=== PATIENT | female | born 1990 | race Caucasian/White ===

== ENCOUNTER → 2019-06-30 | Outpatient (CLI) | payer BC ==
[2019-06-30 12:02] LABS: African American GFR (CKD) >90 (>60 ml/min/1.73 sqM); Anion Gap 8 mmol/L; Blood Urea Nitrogen 17 mg/dL (7-17); Carbon Dioxide 25 mmol/L (22-30); Chloride 110 mmol/L (98-107); Glucose 94 mg/dL (74-99); Non-African American GFR(CKD) >90 (>60 ml/min/1.73 sqM); Potassium 4.3 mmol/L (3.5-5.1); Sodium 143 mmol/L (137-145)
[2019-06-30 12:12] LABS: HCT 42.6 % (34.0-46.0); MCHC 32.7 g/dL (31.0-37.0); MCV 91.5 fL (80.0-100.0); Mean Platelet Volume 7.5; Platelet Count 323 k/uL (150-450); RBC 4.66 m/uL (3.80-5.40); RDW 12.9 % (11.5-15.5); WBC 6.2 k/uL (3.8-10.6)
== END | disposition home or self-care (01) ==
LOC: LABPAT 11:35
PROVIDERS: ATTEND Internal Medicine Clinical Cardiac Electrophysiology
DX: Z01.812 Encounter for preprocedural laboratory examination (principal); I47.1 Supraventricular tachycardia; I34.1 Nonrheumatic mitral (valve) prolapse
CPT/HCPCS: 36415; 80051; 82565; 82947; 84520; 85027

== ENCOUNTER 2019-07-10 11:17 | Day surgery (SDC) | payer BC ==
[2019-07-09 08:34] VITALS: BMI 25.8
[~2019-07-10 11:17] MED LIST: DEXAMETHASONE SOD PHOSPHATE 10 MG/ML 1 ML VIAL IV ONE; HYDROmorphone 0.5 MG/0.5 ML SYRINGE IVP PRN; LACTATED RINGERS 1,000 ML IV SCH; MIDAZOLAM 2 MG/2 ML VIAL IV PRN; ONDANSETRON 4 MG/2 ML VIAL IVP ONE
[2019-07-10] MEDS ORDERED: SODIUM CHLORIDE 0.9% 1,000 ML IV ONE ×2 (11:59→15:57)
[2019-07-10] MEDS ORDERED: PROPOFOL 10 MG/ML 20 ML VIAL IV ONE (12:20)
[2019-07-10] MEDS ORDERED: HEPARIN SODIUM,PORCINE 5,000 UNIT/ML 1 ML VIAL ONE (12:20)
[2019-07-10] MEDS ORDERED: fentaNYL (PF) 50 MCG/ML 2 ML AMP ONE (12:20)
[2019-07-10] MEDS ORDERED: MIDAZOLAM 2 MG/2 ML VIAL ONE (12:20)
[2019-07-10] MEDS ORDERED: ISOPROTERENOL 250 MCG/1.25 ML SYR IV ONE (12:20)
[2019-07-10] MEDS ORDERED: LIDOCAINE 1% INJ 10MG/ML (20 ML MDV) ONE (12:21)
[2019-07-10] MEDS ORDERED: LIDOCAINE 1% INJ 10MG/ML (20 ML MDV) SQ ONE (13:08)
[2019-07-10] MEDS ORDERED: HEPARIN SODIUM (1,000 UNIT/ML) 1,000 UNIT in SODIUM CHLORIDE 0.9% 1,000 ML IRRIGATION ONE ×2 (14:14→15:00)
[2019-07-10] MEDS ORDERED: ACETAMINOPHEN TAB 325 MG TAB PO PRN (15:46)
[2019-07-10] MEDS ORDERED: HYDROcodone/APAP 5-325MG 1 EACH TAB PO PRN (15:46)
[2019-07-10] MEDS ORDERED: ACETAMINOPHEN IV (For NPO) 1,000 MG in EMPTY BAG 1 BAG IVPB ONE (15:46)
--- NOTE | 2019-07-10 16:07 | P.HPCAR ---
History of Present Illness This is Dr. Drummond dictating on this patient The patient was interviewed and examined by me IMPRESSION / ASSESSMENT: 20-year-old female with a history of recurrent palpitations, therefore terminate with a Valsalva maneuver Recent episodes are longer, more frequent and do not terminate with the Valsalva maneuver The last for about an hour Presyncope associated with these episodes Mitral prolapse Stable from a standpoint saccadic standpoint to proceed with EP study on the back PLAN: EP study and SVT ablation HPI 20-year-old female who has had years of SVT/palpitations. The Valsalva maneuver usually works and she was treated medically with verapamil. However more recently she is having very frequent episodes that last longer than before. The cholesterol to 1 hour at a time, do not respond to Valsalva maneuver anymore and make her dizzy and lightheaded. She has been treated with verapamil in the past She has mitral prolapse ROS: No fever chills or rigors, no cough, phlegm or expectoration, no nausea, vomiting or diarrhea, no hematuria, dysuria, no musculoskeletal complaints, no strokes or seizures, no skin lesions. EXAMINATION: Afebrile 97.8F, pulse rate in the 80s and 90s normal respirations Blood pressure 142/86 mmHg Normal heart sounds normal S1 normal S2 no murmurs to gallop No JVD No lower extremity edema denies soft abdomen nontender Breath sounds are clear no rhonchi no crackles REVIEW OF LABS, ECG & MEDICAL DATA Beta-hCG negative Physical Exam Vitals: Vital Signs Temp Pulse Resp BP Pulse Ox 07/10/19 11:49 97.8 F 94 16 142/86 100 Intake and Output 07/10/19 07/10/19 07/10/19 06:59 14:59 22:59 Intake Total 1000 213 Balance 1000 213 Intake: IV 1000 213 Other: Weight 76 kg Past Medical History Past Medical History: Asthma Additional Past Medical History / Comment(s): SEE DR XIE HISTORY AND PHYSICAL FOR CARDIAC HISTORY History of Any Multi-Drug Resistant Organisms: None Reported Past Surgical History: No Surgical Hx Reported, Tonsillectomy Past Anesthesia/Blood Transfusion Reactions: Motion Sickness Smoking Status: Never smoker - Past Family History Mother Family Medical History: No Reported History Physical Examination Vital Signs Temp Pulse Resp BP Pulse Ox 07/10/19 11:49 97.8 F 94 16 142/86 100 Intake and Output 07/10/19 07/10/19 07/10/19 06:59 14:59 22:59 Intake Total 1000 213 Balance 1000 213 Intake: IV 1000 213 Other: Weight 76 kg Results Current Medications Generic Name Dose Route Start Last Admin Trade Name Freq PRN Reason Stop Dose Admin Acetaminophen 650 mg 07/10/19 15:46 Tylenol Tab PO Q6HR PRN Mild Pain Hydrocodone Bitart/Acetaminophen 1 each 07/10/19 15:46 [place] 5-325 PO Q4HR PRN Moderate Pain Hydromorphone HCl 0.5 mg 07/10/19 06:17 Dilaudid IVP 07/11/19 06:18 Q5M PRN Pain Control Lactated Ringer's 1,000 mls @ 20 mls/hr 07/10/19 06:17 Lactated Ringers IV .Q24H SCAR Sodium Chloride 1,000 mls @ 20 mls/hr 07/10/19 06:17 Saline 0.9% IV .Q24H SCAR Acetaminophen 1,000 mg/ IV 100 mls @ 400 mls/hr 07/10/19 15:46 Solution IVPB 07/10/19 16:00 ONCE ONE Midazolam HCl 2 mg 07/10/19 06:17 Versed IV 07/11/19 06:18 ONCE PRN Anxiety Sodium Chloride 12 ml 07/10/19 21:00 Saline Flush IV Q12HR SCAR Intake and Output 07/10/19 07/10/19 07/10/19 06:59 14:59 22:59 Intake Total 1000 213 Balance 1000 213 Intake: IV 1000 213 Other: Weight 76 kg Patient Weight 07/11/19 06:59 Weight 76 kg
--- NOTE | 2019-07-10 16:09 | P.PRLE ---
RE: Kathleen Caldera Dear Dr. Manzo Patient underwent a diagnostic EP study for palpitations refractory to medical treatment. She had easily inducible AV yessenia reentrant tachycardia and she underwent successful ablation of the slow pathway. The tachycardia was rendered noninducible At this time I would recommend stopping verapamil completely. Thank you for entrusting me with the care of the patient Warm regards Sincerely Elbert Drummond
[2019-07-10] MEDS: SODIUM CHLORIDE 0.9% 1,000 ML IV SCH (16:14)
--- NOTE | 2019-07-10 21:25 | PCN ---
PROCEDURE NOTE Kathleen Caldera is a 28-year-old female who has had recurrent palpitations that are Valsalva-sensitive. More recently she has become resistant to the Valsalva maneuver and she continues to have episodes that make her very dizzy. These last for up to an hour. She is brought in for a diagnostic EP study and radiofrequency ablation. Patient was brought to the EP lab in a fasting state. Written informed consent was obtained prior to the procedure. The right and left groins were prepped and draped as per protocol. Venous sheaths were placed in the right and left femoral veins, and via these 4 diagnostic catheters were positioned, including high right atrial catheter, His bundle catheter, RV and coronary sinus catheter. The sinus cycle length was 720 milliseconds, MO interval 191 milliseconds, QRS 97 milliseconds and QT 390 milliseconds. AH interval 95 milliseconds, HV interval 59 milliseconds. Sinus node recovery times at 600, 500 and 400 milliseconds were tested. The sinus node recovery times at 600 and 500 milliseconds were 1205 and 862 milliseconds. With straight pacing, AVNRT was induced. Onset of the tachycardia was with a long MO interval and a long AH interval. Separate times were short and less than 20 milliseconds, consistent with AV yessenia reentry. However, with pacing maneuvers in the right ventricle, it would result in repeated termination of the tachycardia. Spontaneous termination would occur with block of the retrograde limb. Parahisian pacing was performed and a yessenia response was noted. Septal times were short. VA Wenckebach block 310 milliseconds. Isuprel was started and AVNRT was induced, but entrainment could not be performed because this would result in termination of the tachycardia. Finally with atrial pacing, atrial fibrillation was induced, which then later organized into an atrial tachycardia and she required electrical cardioversion for this. The AV yessenia reentry was most easily inducible with straight pacing from the high right atrium as well as from the coronary sinus. Three-dimensional electroanatomic mapping was performed in the His bundle, the His cloud and the coronary sinus. [place] were mapped and tagged. RF ablation was applied anterior and just below the coronary sinus os, but this did not result in junctional rhythm. Finally, after some detailed mapping, RF ablation was applied just outside the floor of the coronary sinus os and junctional rhythm was obtained. Following that, only residual echo beats were noted. No sustained or nonsustained SVT was noted. We had to switch to an irrigated-tip catheter to achieve success at this site. RF ablation was also applied within the floor of the coronary sinus and at the roof of the coronary sinus. The final actual successful path was just outside the coronary sinus floor. Following that, straight pacing was performed from the high right atrium from the coronary sinus. Extrastimulation was performed, and other than an occasional single echo beat, no other arrhythmia was induced. MO interval remained stable. CS AV node Wenckebach block was 240 milliseconds. AV node block from the high right atrium was 280 milliseconds. Isuprel was used and no arrhythmias were induced. All catheters were then removed. The patient was transferred back to telemetry. RESULT: Diagnostic EP study revealing typical AV yessenia re-entry as a mechanism of the tachycardia, successful mapping and ablation of the slow pathway just anterior and outside the coronary sinus os at its floor. The patient tolerated the procedure well without any acute complication. MMODL / IJN: [id number] /
[2019-07-11] MEDS: SODIUM CHLORIDE 0.9% 1,000 ML IV SCH (03:33)
--- NOTE | 2019-07-11 07:48 | P.DS ---
Providers Attending physician: Elbert Drummond Primary care physician: Flaquito Ponce Patient is doing well. No chest discomfort dizziness lightheadedness now. When she first got up she was a bit dizzy and nauseous but thereafter she has not had any further recurrences. She's not had any chest discomfort. No pleuritic chest discomfort she is lying comfortably in bed. She has no groin problems. There is no hematoma no swelling minimal tenderness Heart sounds are normal no murmurs no gallop or rub Breath sounds are clear Abdomen is soft Extremities warm line no JVD She looks comfortable Blood pressure 106/61 mmHg also rate in the 70s afebrile Twelve-lead ECG shows sinus rhythm normal ST segments Impression AV yessenia reentrant tachycardia, symptomatic and associated with presyncope Refractory to treatment Diagnostic EP study for better efficacy ablation, successful ablation of AV yessenia reentry and tachycardia was rendered noninducible Plan follow Dr. Drummond within a week No medications Plan - Discharge Summary Discharge Rx Participant: No New Discharge Prescriptions: No Action No Known Home Medications Discharge Medication List No Known Home Medications 07/09/19 [History] Follow up Appointment(s)/Referral(s): Elbert Drummond MD [STAFF PHYSICIAN] - 1 Week (follow up with Dr. Drummond/Suki Tuttle/Sharon Mohr in one to 2 weeks Follow Suki Tuttle 8:30 AM TuesdayJuly) Activity/Diet/Wound Care/Special Instructions: Post EP study - Ablation instructions 1. Keep access sites dry for 2 days. 2. No heavy lifting or straining for 2 days. 3. Avoid bending the hips repeatedly for 2 days. 4. You may go up and down stairs slowly Call if the following is noted 1. Bleeding, increasing swelling or pain at the access sites. 2. Increasing chest discomfort, especially upon taking a deep breath. 3. Increasing shortness of breath, at rest or with exertion. 4. Undue cough / phlegm 5. Difficulty or pain while swallowing. 6. Pain or change in color in the extremities. 7. Fever, chills, rigors. 8. Increasing headache or neurologic symptoms. 9. Dizziness, fainting, palpitations Discharge Disposition: HOME SELF-CARE
[2019-07-11 08:02] VITALS: BP 97/66; PULSE 81; RESP 16; TEMP 97.9
== END 2019-07-11 10:17 | disposition home or self-care (01) ==
LOC: CATHEP 11:17 → 1SOBS 16:04 → CATHEP 07-11 10:17
PROVIDERS: ATTEND Internal Medicine Clinical Cardiac Electrophysiology
DX: I47.1 Supraventricular tachycardia (principal); I34.1 Nonrheumatic mitral (valve) prolapse; J45.909 Unspecified asthma, uncomplicated
CPT/HCPCS: 93623; 93613; 93653; 81025; C1894; C1769 ×2; C1730 ×2; C1732 ×2; C1893; J2250; J1644 ×2; J2001; J3010; J0131; J2704

== ENCOUNTER → 2019-07-27 | Outpatient (CLI) | payer BC ==
[2019-07-27 10:38] LABS: Basophils % (A) 0 %; Eosinophils # (A) 0.1 k/uL (0-0.7); Eosinophils % (A) 2 %; HCT 41.8 % (34.0-46.0); Lymphocytes % (A) 15 %; MCH 30.6 pg (25.0-35.0); MCHC 33.5 g/dL (31.0-37.0); MCV 91.4 fL (80.0-100.0); Mean Platelet Volume 7.2; Monocytes # (A) 0.4 k/uL (0-1.0); Monocytes % (A) 6 %; Neutrophils % (A) 76 %; Platelet Count 315 k/uL (150-450); RBC 4.57 m/uL (3.80-5.40); RDW 12.7 % (11.5-15.5); WBC 6.6 k/uL (3.8-10.6)
[2019-07-27 16:45] LABS: ALT 17 U/L (8-44); AST 23 U/L (13-35); African American GFR (CKD) 136.7 (60.0-200.0); Albumin/Globulin Ratio 2.29 (1.60-3.17); Alkaline Phosphatase 52 U/L (41-126); BUN/Creat Ratio 14.29 Ratio (12.00-20.00); Calcium 9.1 mg/dL (8.7-10.3); Carbon Dioxide 25.8 mmol/L (21.6-31.8); Chloride 109 mmol/L (96-109); Chol/HDL Ratio 3.39; Cholesterol 156 mg/dL (0-200); Globulin 2.1 g/dL (1.6-3.3); Glucose 90 mg/dL (70-110); Non-African American GFR(CKD) 117.9 (60.0-200.0); Potassium 4.5 mmol/L (3.5-5.5); Sodium 141 mmol/L (135-145); Total Bilirubin 1.1 mg/dL (0.3-1.2); Total Protein 6.9 g/dL (6.2-8.2); Triglycerides <50.0 mg/dL (0.0-149.0)
== END | disposition home or self-care (01) ==
LOC: LABWHC1 09:52
PROVIDERS: ATTEND Internal Medicine
DX: E55.9 Vitamin D deficiency, unspecified (principal); R53.83 Other fatigue; R53.1 Weakness
CPT/HCPCS: 36415; 80053; 80061; 82306; 82607; 84439; 84443; 85025

== ENCOUNTER → 2020-10-31 | Outpatient (CLI) | payer BC | END | disposition home or self-care (01) | LOC: LABWHC1 12:24 | PROVIDERS: ATTEND Emergency Medicine | DX: Z20.822 Contact with and (suspected) exposure to COVID-19 (principal) | CPT/HCPCS: U0003; C9803; U0005 ==

== ENCOUNTER → 2021-04-10 | Outpatient (CLI) | payer MEDICAID ==
[2021-04-10 16:43] LABS: Basophils # (A) 0.04 X 10*3/uL (0.00-0.10); Basophils % (A) 0.6 %; Eosinophils # (A) 0.16 X 10*3/uL (0.04-0.35); Eosinophils % (A) 2.5 %; HCT 40.9 % (37.2-46.3); HGB 13.5 g/dL (12.0-15.0); Lymphocytes # (A) 2.49 X 10*3/uL (0.90-5.00); Lymphocytes % (A) 39.1 %; MCH 29.9 pg (27.0-32.0); MCV 90.7 fL (80.0-97.0); Mean Platelet Volume 10.4 fL (9.5-12.2); Monocytes # (A) 0.66 X 10*3/uL (0.20-1.00); Monocytes % (A) 10.4 %; Neutrophils # (A) 3.01 X 10*3/uL (1.80-7.70); Neutrophils % (A) 47.2 %; Platelet Count 296 X 10*3/uL (140-440); RBC 4.51 X 10*6/uL (4.10-5.20); RDW 12.6 % (11.5-14.5); WBC 6.37 X 10*3/uL (4.50-10.00)
[2021-04-10 18:18] LABS: African American GFR (CKD) 140.9 (60.0-200.0); Albumin 4.5 g/dL (3.8-4.9); Albumin/Globulin Ratio 1.65 (1.60-3.17); Anion Gap 12.4 mmol/L (4.00-12.00); BUN/Creat Ratio 22.26 Ratio (12.00-20.00); Blood Urea Nitrogen 13.6 mg/dL (9.0-27.0); Carbon Dioxide 22.2 mmol/L (21.6-31.8); Chol/HDL Ratio 3.54 Ratio; Globulin 2.7 g/dL (1.6-3.3); HDL Cholesterol 44.1 mg/dL (40.00-60.00); LDL Cholesterol,Calculated 88.3 mg/dL (0.0-131.0); Non-African American GFR(CKD) 121.6 (60.0-200.0); Potassium 4.1 mmol/L (3.5-5.5); T4, Free (Free Thyroxine) 0.94 ng/dL (0.800-1.800); Total Bilirubin 0.6 mg/dL (0.30-1.20); Total Protein 7.2 g/dL (6.2-8.2); VLDL Calculation 23.6 mg/dL (5.00-40.00)
== END | disposition home or self-care (01) ==
LOC: LABWHC1 07:46
PROVIDERS: ATTEND Internal Medicine
DX: Z00.00 Encounter for general adult medical examination without abnormal findings (principal); E55.9 Vitamin D deficiency, unspecified
CPT/HCPCS: 36415; 80053; 80061; 82306; 84439; 84443; 85025

== ENCOUNTER → 2021-05-18 | Outpatient (CLI) | payer MEDICAID | END | disposition home or self-care (01) | LOC: LABWHC1 10:16 | PROVIDERS: ATTEND Internal Medicine | DX: E55.9 Vitamin D deficiency, unspecified (principal) | CPT/HCPCS: 36415; 82306 ==

== ENCOUNTER 2022-04-28 15:15 | Emergency (ER) | payer MEDICAID, OTHER ==
[2022-04-28 15:26] VITALS: TEMP 98.5
[2022-04-28] MEDS ORDERED: SODIUM CHLORIDE 0.9% 1,000 ML IV STA (15:47)
[2022-04-28] MEDS ORDERED: ASPIRIN 81 MG PO STA (15:49)
[2022-04-28 16:10] LABS: Basophils % (A) 1 %; Eosinophils # (A) 0.1 k/uL (0-0.7); Eosinophils % (A) 2 %; HCT 40.8 % (34.0-46.0); HGB 14.2 gm/dL (11.4-16.0); Lymphocytes # (A) 1.3 k/uL (1.0-4.8); Lymphocytes % (A) 19 %; MCH 30.3 pg (25.0-35.0); MCHC 34.8 g/dL (31.0-37.0); MCV 87.1 fL (80.0-100.0); Mean Platelet Volume 7.3; Monocytes # (A) 0.5 k/uL (0-1.0); Monocytes % (A) 7 %; Neutrophils # (A) 4.8 k/uL (1.3-7.7); Neutrophils % (A) 70 %; Platelet Count 336 k/uL (150-450); RBC 4.69 m/uL (3.80-5.40); RDW 12.4 % (11.5-15.5); WBC 6.9 k/uL (3.8-10.6)
[2022-04-28 16:26] LABS: Prothrombin Time 10.9 sec (9.0-12.0)
--- NOTE | 2022-04-28 16:29 | XR ---
EXAMINATION TYPE: XR chest 2V DATE OF EXAM: 04/28/2022 4:25 PM COMPARISON: None TECHNIQUE: XR chest 2V Frontal and lateral views of the chest. CLINICAL INDICATION:Female, 31 years old with history of difficulty breathing; FINDINGS: Lungs/Pleura: There is no evidence of pleural effusion, focal consolidation, or pneumothorax. Pulmonary vascularity: Unremarkable. Heart/mediastinum: Cardiomediastinal silhouette is unremarkable. Musculoskeletal: No acute osseous pathology. IMPRESSION: No acute cardiopulmonary disease/process.
[2022-04-28 16:40] LABS: ALT 25 U/L (4-34); AST 35 U/L (14-36); African American GFR (CKD) >90 (>60 ml/min/1.73 sqM); Albumin 4.6 g/dL (3.5-5.0); Alkaline Phosphatase 61 U/L (38-126); Anion Gap 10 mmol/L; Blood Urea Nitrogen 10 mg/dL (7-17); Calcium 8.8 mg/dL (8.4-10.2); Carbon Dioxide 24 mmol/L (22-30); Chloride 106 mmol/L (98-107); Glucose 99 mg/dL (74-99); Non-African American GFR(CKD) >90 (>60 ml/min/1.73 sqM); Sodium 140 mmol/L (137-145); Total Bilirubin 1.1 mg/dL (0.2-1.3); Total Protein 7.7 g/dL (6.3-8.2)
[2022-04-28 16:42] LABS: Potassium 4.7 mmol/L (3.5-5.1)
[2022-04-28 17:56] LABS: HCG,Qualitative Serum Not Detected
--- NOTE | 2022-04-28 18:24 | ED ---
General Adult HPI - General Chief complaint: Shortness of Breath Stated complaint: SOB,Left arm pain, Jaw pain Time Seen by Provider: 04/28/22 15:28 Source: patient, RN notes reviewed, old records reviewed Mode of arrival: ambulatory Limitations: no limitations - History of Present Illness Initial comments: Patient is a 31-year-old female with past medical history remarkable for chronic palpitations, prior SVT requiring ablation, chronic chest discomfort and palpitations with radiation to the left neck and left arm who has follow-up with her cuff setter next month presents emergency Department after family wanted her to be evaluated. States on a weekly basis she has the symptoms. She has noticed some slightly more frequently over the last few days but does get them multiple times per week. States she largely feels within normal limits at this time. No known palliative or provocative factors. They tend to come and go as they please. States she only has some left arm pain at this time which is chronic for the patient and typical with her palpitations. She denies any neck pain this time. Denies any chest pain. States she has some mild palpitations. Occasionally get short of breath with these denies any current shortness of desean th. Denies any history of blood clots. Is not on any medications. Presents for further evaluation at this time. States she ultimately would like to go home. - Related Data Home Medications Medication Instructions Recorded Confirmed No Known Home Medications 07/09/19 07/09/19 Allergies Allergy/AdvReac Type Severity Reaction Status Date / Time No Known Allergies Allergy Verified 04/28/22 15:25 Review of Systems ROS Statement: Those systems with pertinent positive or pertinent negative responses have been documented in the HPI. Review of Systems: CONST: Denies fever EYES: Denies blurry vision ENT: Denies nasal congestion C/V: Endorses palpitations RESP: Denies shortness of breath GI: Denies abdominal pain : Denies dysuria SKIN: Denies rash. MSK: Denies joint pain. NEURO: Denies headache ROS Other: All systems not noted in ROS Statement are negative. Past Medical History Past Medical History: Asthma, Respiratory Disorder Additional Past Medical History / Comment(s): SEE DR XIE HISTORY AND PHYSICAL FOR CARDIAC HISTORY, broncitis, SVT History of Any Multi-Drug Resistant Organisms: None Reported Past Surgical History: Ablation, Tonsillectomy Additional Past Surgical History / Comment(s): AVNRT ablation Past Psychological History: No Psychological Hx Reported Smoking Status: Never smoker Past Alcohol Use History: Occasional Past Drug Use History: None Reported - Past Family History Brother(s) Additional Family Medical History / Comment(s): Psorisis General Exam - General Exam Comments Initial Comments: General: Appears in no acute distress. HEAD: Normal with no signs of head trauma. EYES: PERRLA, EOMI, conjunctiva normal, no discharge. ENT: Hearing grossly intact, normal oropharynx. RESPIRATORY: Clear breath sounds bilaterally. No wheezes, rales, or rhonchi. No increased work of breathing. No hypoxia. C/V: Regular rate and rhythm. S1 and S2 auscultated, no edema, peripheral pulses 2+ and intact throughout ABD: Abd is soft, nontender, nondistended EXT: Normal range of motion, no obvious deformity SKIN: No rashes or lesions observed on exposed skin. NEURO: Alert and oriented 4. Limitations: no limitations Course Vital Signs 04/28/22 04/28/22 04/28/22 15:23 15:30 16:05 Temperature 98.5 F Pulse Rate 103 H 84 Respiratory 20 18 17 Rate Blood Pressure 135/93 122/81 O2 Sat by Pulse 97 100 Oximetry 04/28/22 04/28/22 04/28/22 16:35 17:40 18:00 Temperature Pulse Rate 80 75 79 Respiratory 16 16 17 Rate Blood Pressure 129/73 111/71 116/75 O2 Sat by Pulse 100 100 100 Oximetry 04/28/22 18:41 Temperature 98.5 F Pulse Rate 77 Respiratory 16 Rate Blood Pressure 121/70 O2 Sat by Pulse 98 Oximetry Medical Decision Making - Medical Decision Making Based on the patient's presentation and physical exam, I'm concerned for possible cardiopulmonary etiology for her current symptoms. Patient presents with chronic palpitations as well as left arm pain symptoms. Has a history of SVT status post ablation. Vital signs are within acceptable limits. She is resting comfortably without any acute complaints. She will be given 324 mg of aspirin as well as a 1 L fluid bolus. We will obtain cardiac labs, EKG, chest x-ray. She was in agreement this plan. EKG shows no signs of acute ischemia. Chest x-ray as interpreted by myself revealed no acute cardio pulmonary process. No pneumothorax, infiltrate, bony traumatic injury. Laboratory studies were remarkable for an undetectable troponin, and undetectable d-dimer, and no other abnormalities including a normal BNP. Patient is Covid negative. She is not . On reevaluation, patient is feeling improved. Heart score is low at 1. We discussed her workup. I believe it is safe for her to be discharged home at this time as she is low risk. These are chronic symptoms. She was in agreement this plan. Strict return precautions were discussed. She already has outpatient follow-up with cardiology to arrange. I instructed the patient to follow up with their PCP in the next 1-3 days. I explained that the patient should return to the emergency department if they experience any worsening symptoms. Strict return precautions were discussed with the patient. The patient expressed understanding of these instructions. I answ ered all questions that the patient had. The patient was discharged home in good condition with their prescriptions and follow up information. - Lab Data Result diagrams: 04/28/22 16:00 04/28/22 16:00 Lab Results 04/28/22 04/28/22 04/28/22 Range/Units 16:00 16:00 16:00 WBC 6.9 (3.8-10.6) k/uL RBC 4.69 (3.80-5.40) m/uL Hgb 14.2 (11.4-16.0) gm/dL Hct 40.8 (34.0-46.0) % MCV 87.1 (80.0-100.0) fL MCH 30.3 (25.0-35.0) pg MCHC 34.8 (31.0-37.0) g/dL RDW 12.4 (11.5-15.5) % Plt Count 336 (150-450) k/uL MPV 7.3 Neutrophils % 70 % Lymphocytes % 19 % Monocytes % 7 % Eosinophils % 2 % Basophils % 1 % Neutrophils # 4.8 (1.3-7.7) k/uL Lymphocytes # 1.3 (1.0-4.8) k/uL Monocytes # 0.5 (0-1.0) k/uL Eosinophils # 0.1 (0-0.7) k/uL Basophils # 0.0 (0-0.2) k/uL PT 10.9 (9.0-12.0) sec INR 1.0 (<1.2) APTT 25.0 (22.0-30.0) sec D-Dimer <0.17 (<0.60) mg/L FEU Sodium 140 (137-145) mmol/L Potassium 4.7 (3.5-5.1) mmol/L Chloride 106 (98-107) mmol/L Carbon Dioxide 24 (22-30) mmol/L Anion Gap 10 mmol/L BUN 10 (7-17) mg/dL Creatinine 0.53 (0.52-1.04) mg/dL Est GFR (CKD-EPI)AfAm >90 (>60 ml/min/1.73 sqM) Est GFR (CKD-EPI)NonAf >90 (>60 ml/min/1.73 sqM) Glucose 99 (74-99) mg/dL Plasma Lactic Acid Lalit (0.7-2.0) mmol/L Calcium 8.8 (8.4-10.2) mg/dL Magnesium 2.0 (1.6-2.3) mg/dL Total Bilirubin 1.1 (0.2-1.3) mg/dL AST 35 (14-36) U/L ALT 25 (4-34) U/L Alkaline Phosphatase 61 (38-126) U/L Troponin I (0.000-0.034) ng/mL NT-Pro-B Natriuret Pep pg/mL Total Protein 7.7 (6.3-8.2) g/dL Albumin 4.6 (3.5-5.0) g/dL HCG, Qual Not Detected Coronavirus (PCR) (Not Detectd) 04/28/22 04/28/22 04/28/22 Range/Units 16:00 16:00 16:00 WBC (3.8-10.6) k/uL RBC (3.80-5.40) m/uL Hgb (11.4-16.0) gm/dL Hct (34.0-46.0) % MCV (80.0-100.0) fL MCH (25.0-35.0) pg MCHC (31.0-37.0) g/dL RDW (11.5-15.5) % Plt Count (150-450) k/uL MPV Neutrophils % % Lymphocytes % % Monocytes % % Eosinophils % % Basophils % % Neutrophils # (1.3-7.7) k/uL Lymphocytes # (1.0-4.8) k/uL Monocytes # (0-1.0) k/uL Eosinophils # (0-0.7) k/uL Basophils # (0-0.2) k/uL PT (9.0-12.0) sec INR (<1.2) APTT (22.0-30.0) sec D-Dimer (<0.60) mg/L FEU Sodium (137-145) mmol/L Potassium (3.5-5.1) mmol/L Chloride (98-107) mmol/L Carbon Dioxide (22-30) mmol/L Anion Gap mmol/L BUN (7-17) mg/dL Creatinine (0.52-1.04) mg/dL Est GFR (CKD-EPI)AfAm (>60 ml/min/1.73 sqM) Est GFR (CKD-EPI)NonAf (>60 ml/min/1.73 sqM) Glucose (74-99) mg/dL Plasma Lactic Acid Lalit 1.0 (0.7-2.0) mmol/L Calcium (8.4-10.2) mg/dL Magnesium (1.6-2.3) mg/dL Total Bilirubin (0.2-1.3) mg/dL AST (14-36) U/L ALT (4-34) U/L Alkaline Phosphatase (38-126) U/L Troponin I <0.012 (0.000-0.034) ng/mL NT-Pro-B Natriuret Pep 30 pg/mL Total Protein (6.3-8.2) g/dL Albumin (3.5-5.0) g/dL HCG, Qual Coronavirus (PCR) (Not Detectd) 04/28/22 Range/Units 16:00 WBC (3.8-10.6) k/uL RBC (3.80-5.40) m/uL Hgb (11.4-16.0) gm/dL Hct (34.0-46.0) % MCV (80.0-100.0) fL MCH (25.0-35.0) pg MCHC (31.0-37.0) g/dL RDW (11.5-15.5) % Plt Count (150-450) k/uL MPV Neutrophils % % Lymphocytes % % Monocytes % % Eosinophils % % Basophils % % Neutrophils # (1.3-7.7) k/uL Lymphocytes # (1.0-4.8) k/uL Monocytes # (0-1.0) k/uL Eosinophils # (0-0.7) k/uL Basophils # (0-0.2) k/uL PT (9.0-12.0) sec INR (<1.2) APTT (22.0-30.0) sec D-Dimer (<0.60) mg/L FEU Sodium (137-145) mmol/L Potassium (3.5-5.1) mmol/L Chloride (98-107) mmol/L Carbon Dioxide (22-30) mmol/L Anion Gap mmol/L BUN (7-17) mg/dL Creatinine (0.52-1.04) mg/dL Est GFR (CKD-EPI)AfAm (>60 ml/min/1.73 sqM) Est GFR (CKD-EPI)NonAf (>60 ml/min/1.73 sqM) Glucose (74-99) mg/dL Plasma Lactic Acid Lalit (0.7-2.0) mmol/L Calcium (8.4-10.2) mg/dL Magnesium (1.6-2.3) mg/dL Total Bilirubin (0.2-1.3) mg/dL AST (14-36) U/L ALT (4-34) U/L Alkaline Phosphatase (38-126) U/L Troponin I (0.000-0.034) ng/mL NT-Pro-B Natriuret Pep pg/mL Total Protein (6.3-8.2) g/dL Albumin (3.5-5.0) g/dL HCG, Qual Coronavirus (PCR) Not Detected (Not Detectd) - EKG Data -: EKG Interpreted by Me EKG Comments: 12-lead Electrocardiogram Interpretation Note EKG was reviewed and interpreted by myself. 12-lead ECG performed at 1534 is i nterpreted by me as revealing incomplete right bundle branch block at a rate of 86 beats per minute. [place] is normal. CA interval is 188 ms, QRS duration is 100 ms, QTc is 407 ms.. There were no ST or T wave abnormalities to suggest myocardial ischemia or injury. R wave progression across the precordium was satisfactory. By my interpretation this EKG is non-diagnostic for acute ischemia. When compared with prior EKG from July 2019, no significant change. Disposition Clinical Impression: Heart palpitations Disposition: HOME SELF-CARE Condition: Good Instructions (If sedation given, give patient instructions): Heart Palpitations (ED) Is patient prescribed a controlled substance at d/c from ED?: No Referrals: Flaquito Ponce MD [Primary Care Provider] - 1-2 days Time of Disposition: 18:15
[2022-04-28 18:42] VITALS: BP 121/70; PULSE 77; RESP 16
== END 2022-04-28 18:42 | disposition home or self-care (01) ==
LOC: EC 15:15
DX: R00.2 Palpitations (principal); J45.909 Unspecified asthma, uncomplicated; Z20.822 Contact with and (suspected) exposure to COVID-19
CPT/HCPCS: 36415; 71046; 80053; 83605; 83735; 83880; 84484; 84703; 85025; 85379; 85610; 85730; 87635; 93005; 96360; 99285

== ENCOUNTER 2024-03-23 12:14 | Day surgery (SDC) | payer MEDICAID ==
[~2024-03-23 12:14] MED LIST changes: -DEXAMETHASONE SOD PHOSPHATE 10 MG/ML 1 ML VIAL IV ONE; -LACTATED RINGERS 1,000 ML IV SCH; -ONDANSETRON 4 MG/2 ML VIAL IVP ONE
[2024-03-23] MEDS: ONDANSETRON 4 MG/2 ML VIAL IVP ONE (13:00)
[2024-03-23] MEDS: LACTATED RINGERS 1,000 ML IV SCH (13:00)
[2024-03-23] MEDS: SCOPOLAMINE 1 MG/72 HR PATCH TRANSDERM ONE (13:00)
[2024-03-23 13:01] LABS: Basophils % (A) 0 %; Eosinophils # (A) 0.1 k/uL (0-0.7); Eosinophils % (A) 1 %; HCT 42.6 % (34.0-46.0); HGB 14.1 gm/dL (11.4-16.0); Lymphocytes # (A) 1.4 k/uL (1.0-4.8); Lymphocytes % (A) 16 %; MCH 29.9 pg (25.0-35.0); MCV 90.7 fL (80.0-100.0); Monocytes # (A) 0.5 k/uL (0-1.0); Monocytes % (A) 5 %; Neutrophils % (A) 77 %; Platelet Count 361 k/uL (150-450); RDW 12.5 % (11.5-15.5); WBC 9.2 k/uL (3.8-10.6)
[2024-03-23] MEDS: DEXAMETHASONE SOD PHOSPHATE 4 MG/ML 1 ML VIAL IVP STA (13:01)
[2024-03-23] MEDS: IV FLUID CONTINUATION 1,000 ML IV ONE (13:07)
[2024-03-23] MEDS: MIDAZOLAM 2 MG/2 ML VIAL IVP ONE (13:30)
[2024-03-23] MEDS: fentaNYL (PF) 50 MCG/ML 2 ML AMP IVP ONE (13:30)
[2024-03-23] MEDS ORDERED: MIDAZOLAM 2 MG/2 ML VIAL ONE (14:03)
[2024-03-23] MEDS ORDERED: PROPOFOL 10 MG/ML 20 ML VIAL IV ONE (14:03)
[2024-03-23] MEDS ORDERED: ROPIVACAINE 5 MG/ML 30 ML VIAL ONE (14:03)
[2024-03-23] MEDS ORDERED: fentaNYL (PF) 50 MCG/ML 2 ML AMP ONE (14:03)
[2024-03-23] MEDS ORDERED: SODIUM CHLORIDE 0.9% (PF) 10 ML VIAL ONE (14:03)
[2024-03-23] MEDS ORDERED: DEXAMETHASONE SOD PHOSPHATE 4 MG/ML 1 ML VIAL ONE (14:03)
[2024-03-23] MEDS ORDERED: LIDOCAINE 1% INJ 10MG/ML (20 ML MDV) ONE (14:03)
--- NOTE | 2024-03-23 14:19 | P.ANPRN ---
Procedure Note - Anesthesia - Nerve Block Performed Left Adductor Canal Single Time Out Performed: Yes Date of Procedure: 03/23/24 Procedure Start Time: 13:30 Procedure Stop Time: 13:37 Location of Patient: PreOp Indication: Acute Post-Operative Pain, Requested by Surgeon Sedation Type: Sedate with meaningful contact maintained Preparation: Sterile Prep Position: Supine Needle Types: Pajunk Needle Gauge: 21 Ultrasound used to visualize needle placement: Yes Ultrasound used to observe medication spread: Yes Injectate: 0.5% Ropivacaine (see comment for volume) (15 ml + 15 ml NS + 4 mg Dexamethasone) Blood Aspirated: No Pain Paresthesia on Injection Noted: No Resistance on Injection: Normal Image Stored and Saved: Yes Events: Uneventful and Well Tolerated
--- NOTE | 2024-03-23 14:21 | P.ANPRN ---
Procedure Note - Anesthesia - Nerve Block Performed Left Popliteal Single Time Out Performed: Yes Date of Procedure: 03/23/24 Procedure Start Time: 13:38 Procedure Stop Time: 13:45 Location of Patient: PreOp Indication: Acute Post-Operative Pain, Requested by Surgeon Sedation Type: Sedate with meaningful contact maintained Preparation: Sterile Prep Position: Right Lateral Needle Types: Pajunk Needle Gauge: 21 Ultrasound used to visualize needle placement: Yes Ultrasound used to observe medication spread: Yes Injectate: 0.5% Ropivacaine (see comment for volume) (15 mL +15 mL of PF normal saline loss 4 mg dexamethasone) Blood Aspirated: No Pain Paresthesia on Injection Noted: No Resistance on Injection: Normal Image Stored and Saved: Yes Events: Uneventful and Well Tolerated
--- NOTE | 2024-03-23 16:11 | P.OP ---
Date of Procedure: 03/23/24 Preoperative Diagnosis: 1. Acquired flatfoot deformity left foot 2. Accessory navicular left foot 3. Gastroc equinus left ankle Postoperative Diagnosis: 1. Same 2. Same 3. Same Procedure(s) Performed: 1. Laureano calcaneal osteotomy left foot 2. Kidner procedure left foot 3. Gastroc recession left leg Implants: 12 mm x 18 mm x 18 mm cortical allograft wedge 18 mm x 18 mm compression staple 5.5 mm swivel lock Anesthesia: RAQUELA Surgeon: John Koenig Estimated Blood Loss (ml): 2 Pathology: none sent Condition: stable Disposition: PACU Description of Procedure: Prior to the patient being brought to the operating room, anesthesia administered a nerve block on the affected lower extremity. Then the patient was brought into the operating room and placed on table in the supine position. Timeout was taken to confirm correct patient identifiers, correct laterally surgery, and correct procedure. Once the staff in the room was in agreement with the timeout, the patient was induced and placed under general anesthesia. a well-padded tourniquet was placed the left thigh and a wedge beneath the left hip to internally rotate the left leg. The left leg was prepped and draped usual manner. The left leg was exsanguinated, the knee flexed, and the tourniquet inflated to 250 mmHg. Attention was directed over the anterior process of the calcaneus along the lateral side of the foot. A linear incision was made over the area. It was deepened down to the subcutaneous tissue careful to identify, avoid, and retract any neurovascular structures and cauterize any bleeding vessels. Blunt dissection was carried down to the deep fascia overlying the peroneal tendons. The deep fascia was incised. The peroneal tendons so that the peroneal tendons could be reflected off the anterior process of the calcaneus and one flap. Next the calcaneal cuboid joint was identified and then a jack made on the anterior process 1012 mm proximal. Fluoroscopy was used to confirm the proper placement of the proposed osteotomy on both AP and lateral views. A sagittal saw was used to to complete the Laureano osteotomy in the calcaneus. Pins of the distractor placed on either side of the osteotomy. This distractor was positioned over the pins and then used to distract the osteotomy. Sizes were used to determine the appropriate size allograft. The most appropriate was a 12 mm wide by 20 mm long 18 mm deep. The allograft was inserted and impacted down to proper depth. The patient's foot was then loaded and put in neutral position. It was noted that the calcaneus was in a more rectus position beneath the tibia. There was advent the medial arch. And transverse plane deformity was also corrected. Drill holes for an 18 mm x 18 mm compression staple were made on either side of the osteotomy to secure the bone graft staple was inserted and placed to proper depth. Then it was impacted flat against the surface. Fluoroscopy confirmed the proper placement of stable as well as the graft. The wound is irrigated thoroughly with antibiotic saline. Deep closure done with 2-0 Vicryl. Subcu closure done for Monocryl. And skin closure done with 4-0 stratafix in a running subarticular manner. The wedge beneath the hip was then removed ex ternally rotate the leg. Attention was directed over the posterior medial aspect leg just distal to the gastroc muscle belly. A linear incision was made just medial to the midline. It was deepened under the subcutaneous tissue careful to identify, avoid, and retract any neurovascular structures and cauterize any bleeding vessels. Blunt dissection was carried down to the deep fascia. The fascia was incised and reflected off the gastroc aponeurosis medially and laterally. A transverse incision was made to the gastroc aponeurosis from lateral to medial. Once completed ankle was dorsiflexed and a 1-1/2-2 cm gap was created between the ends of the aponeurosis, indicating a full release. The wound is irrigated thoroughly with antibiotic saline. Subcu closure done with 4-0 Monocryl and skin closure done with 4-0 Stratafix in a running subcuticular manner. Then attention was directed over the medial aspect of the midfoot over the navicular. A linear incision was made in line with the posterior tibial tendon. The incision was deepened down to the saphenous tissue careful to identify, avoid, and retract any neurovascular structures and cauterize any bleeding vessels. Blunt dissection was carried down to the deep fascia. The deep fascia was incised just superior to the posterior tibial tendon so that that layer tissue to be reflected and one flap off the medial aspect of the navicular tuberosity. There is a large accessory navicular was identified. It was sharply dissected away from the soft tissue were removed. Part of the tuberosity was also removed for to expose bone and all roughened edges were smoothed. Under direct fluoroscopic visualization, a drill hole for the 5.5 mm anchor was made in the body of the navicular. Fluoroscopy confirmed that it didn't enter the talonavicular or navicular cuneiform joints. The hole was tapped and then the anchor inserted and lace to proper depth. The anodic treater was removed and the sutures mobilized for usage. The wound is thoroughly irrigated with antibiotic saline. The suture was first used to sew the plate posterior tibial tendon flap back to the navicular tuberosity all the and the foot adducted and slightly inverted. Once completed the same suture was used to sew the more dorsal flap from the fascia incision over the repair site in a pants over vest fashion. Again the foot was held adducted and inverted as a suture was tightened. At this point the foot was violated for overall structural correction. The calcaneus was in a near rectus alignment with the tibia. There was advent of the medial arch. There is no longer a forefoot abduction transverse plane deformity present.therefore the decision was made that no further procedures would need to be done. The last wound is irrigated thoroughly with antibody saline. Subcutaneous closure was done with 4-0 Monocryl. And skin closure was done with 4-0 Stratafix in a running subcuticular manner. dermal glue was placed over all the incisions and allowed to dry partially. Steri-Strips are placed over all the incisions. All incisions were covered with an Arthrex jumpstart dressing. A bulky dry dressing was then applied to the left leg. The tourniquet was released and capillary refill return to all digits on the leg. The patient was placed in a well-padded, well molded plaster posterior mold/sugar tong splint. The ankle and foot or held in neutral dorsiflexion and slight inversion until the splint was fully dried. Then anesthesia was reversed and the patient was taken recovery with vital signs stable.
[2024-03-23 16:13] VITALS: TEMP 96.9
[2024-03-23] MEDS: LACTATED RINGERS 1,000 ML IV ONE ×2 (16:30→17:05)
[2024-03-23] MEDS: ONDANSETRON 4 MG/2 ML VIAL IVP STA (16:35)
[2024-03-23 17:30] VITALS: RESP 16
[2024-03-23 19:14] VITALS: BP 120/80; PULSE 80
== END 2024-03-23 19:00 | disposition home or self-care (01) ==
LOC: OR 12:14
PROVIDERS: ATTEND Podiatrist
CPT/HCPCS: 64445; 64447; 81025; 85025